=== PATIENT | male | born 1980 | race Caucasian/White ===

== ENCOUNTER → 2018-01-05 13:32 | Outpatient (CLI) | payer SELFPAY ==
--- NOTE | 2018-01-09 12:11 | ONE_ITS ---
DATE OF SERVICE: January 05, 2018. ASSESSMENT: Thoracic strain. PLAN: Initiate some Physical Therapy. I doubt that he will need ongoing Physical Therapy for any length of time but I would like to address this to prevent it from worsening again. He will begin Meloxicam 7.5 mg 1 PO b.i.d., chosen for lower risk GI side effects. He is instructed in slow, gentle stretching techniques and he is advised to try some heat applications. I will see him back in follow-up on the . Greater than 50% of this visit was spent in planning and coordination of care. He returns to work without limitations. 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 SUBJECTIVE: Mr. Cordova comes in for evaluation of upper back and neck discomfort which began yesterday at work. He says that about 8:30 AM, he had just completed his morning break and, as he was walking back to his work station , he stretched in a manner that is quite familiar to him. He demonstrates that he placed both hands behind his head and rotated both to the left and right. This is part of his daily stretching routine. But, as he did so while walking, he experienced sudden, intense upper thoracic pain on the left. He describes it as sharp, crippling, states it felt like a lightning bolt which radiated all the way up to the left occipital region. States it dropped me to my knees . Specifically, he says he fell to his left knee and then against a parked car. He was able to get up and remained at work. He says he rested for an additional 40 minutes in a seated position but eventually went home due to ongoing discomfort. Once home, he took a 4-hour nap preceded by 400 mg of Ibuprofen as well as 400 mg of Naproxen. When he awoke, he felt extremely stiff in the left upper thoracic region but states he had no headache, no radiation of the pain, no shoulder pain or other musculoskeletal discomfort. He did not apply any heat or ice. Today he says he did sleep well again last night. He awoke with more of an intense stiffness in the same area but not as intense as it had been yesterday. He tells me that rotating his head to the left causes a crampy sensation in the left side of his neck but the intense pain is now gone. REVIEW OF SYSTEMS: Feels generally well without fevers, chills, numbness, tingling, paresthesias of upper extremities. No headache, no visual changes, dizziness, vertigo. No abdominal pain, nausea, vomiting or gastrointestinal complaints. PAST MEDICAL HISTORY: Chronic low back pain which involves disc pathology. It is managed by injections a few times a year. The last one took place 3 months ago. He has been comfortable since. Other past medical history includes cervical and thoracic strain 2 years ago which he says was not like the current incident. It was much more intense. No longer having gastroesophageal reflux disease symptoms. Takes no routine medications except for occasional Tums. No known allergies. SOCIAL HISTORY: He is single, living with significant other and their young family. HABITS: Smokes 1 ppd of cigarettes. Rarely consumes alcohol and he exercises regularly. OBJECTIVE: He is alert, pleasant, cooperative and in no acute distress. Blood pressure 110/78. Pulse 82 and regular. Temperature is 97.5. His height and weight is 6' even and he weighs 200.5 lbs which is a weight gain of nearly 20 lbs since his last visit here. Head - normal. Neck - supple. Chest - heart regular rate and rhythm. Lungs - clear. Musculoskeletal - mild tenderness to palpation over the distal cervical vertebrae. None over the thoracic vertebrae. There is an area of tenderness lateral to T3-4 that is mildly tender with some spasm noted. There is no tenderness throughout the para spinous muscles of the lower thoracic and no tenderness to direct palpation of the para spinous muscles in the cervical spine. None in the occipital region. He has full flexion which does cause some pulling in that same thoracic area on the left. Full extension with ease. No discomfort at all. Rotation to 45 degrees on the left causes a crampy sensation in the left side of the neck and posterior neck and he rotates with ease to the right without discomfort. DTR's of upper extremities 1+ bilaterally. Sensory of upper extremities is intact.
== END ==
PROVIDERS: PCP Family Medicine; Visit Provider Nurse Practitioner Family
DX: M54.6 Pain in thoracic spine (principal); M54.2 Cervicalgia; X50.0XXA Overexertion from strenuous movement or load, initial encounter; Y99.0 Civilian activity done for income or pay
CPT/HCPCS: 99214

== ENCOUNTER 2018-01-11 09:00 | Outpatient (RCR) | payer SELFPAY ==
--- NOTE | 2018-01-10 10:30 | IE_ITS ---
Date: January 10, 2018 Referring: VINOD Sherman M.D. Diagnosis: Thoracic strain P.T. Diagnosis: Cervicothoracic myofascial pain. SUBJECTIVE: History of Present Illness: Alli complaints of continuous discomfort throughout the posterolateral of the cervical spine on the L into the supraspinatus fossa and the medial scapular border. Occasionally associated with paresthesias throughout the L hand, especially when extending his cervical spine. His last complaint is an intermittent aching sensation throughout the lateral proximal L humerus. Symptoms are generally worse with end range cervical movements. Does not generally interfere with sleeping pattern, although will occasionally waken him with rolling. A 38 year old male who developed an acute onset of cervical, thoracic discomfort when stretching last Tuesday at work. He had his hands behind his head and was arching backwards when his pain occurred. He took the rest of the day off and . He returned to work on Tuesday resuming his normal activities. He notes he is a 100% better, but still symptomatic. Pain Rating: Varies from a 4 to 7/10 Pain Location: Throughout the posterolateral cervical spine, into interscapular region. Prior Level of Function: Independent with all ADLs Current Level of Function: He has some discomfort with heavier lifting. Social: with 3 children, works at [employer], sometimes up to 60 hours per week. Comorbidities: None. Falls in the last year: __X__ No ____Yes - How many? ____ - (if over 2, balance SM needs to be completed) Reported hospitalizations in the last year - __X__ No ____ Yes - Dates of admission/reason: Medications: Was taken Ibuprofen and Tylenol, but discontinued this over the past couple days. Quality of Life: __X__ Excellent ____ Good ____ Fair ____ Poor Standardized Measures: MOLBPDQ: __8%__ OBJECTIVE: Posture: Mesomorphic. Shoulders and pelvis are level. (-) Lateral shift. Observation: (behavior, atrophy, skin color, etc.) No abnormal pain behavior noted, pleasant, cooperative. Palpation: Has some increased tone and tenderness throughout the thoracic paraspinals from T12-1 as well as L rhomboids, infra/supraspinatus fossa and levator scap. ROM: His active cervical spine movements in the standing position, rotation to the R is 80 degrees, L 70 degrees. Sidebending is 45 degrees bilaterally. He has end range discomfort with sidebending to the R, rotation to the L. Extension is limited to approximately 30 degrees, reproduction of his paresthesias. AA in supine position I can eventually get close to full range, although there is resistance in the early stages, except for extension at +45 degrees. His shoulder movements are full and painless with movement, other than the last 30 degrees of flexion/abduction in standing position. Passively is full and painfree. His R thumb is at the T11 level, L thumb is 3-4 above. He has a (+) Hawkin's Akshat impingement maneuver on the R. Thoracic rotation is non-painful Joint Accessory Motion: He has hypomobility with gliding maneuvers at the cervical spine. This improves once I reduce his muscle tone. Strength: Neuro: Has full motor control throughout 10/01, though he does complain of some suprascapular discomfort when loading shoulder abduction. Sensation is intact to light touch, UE reflexes symmetrical. Special Tests: (-) Spurling's test, some mild relief with manual traction. Treatment: Consisted of the evaluation along with patient education, mobilization of the cervical and thoracic spine. IE: [id number] Manual therapy: ([id number]). Direct treatment time: 60 MINS Total treatment time: 60 MINS ASSESSMENT: Patient is a 38-year-old male, referred for PT services with the diagnosis of thoracic spine pain. Patient presents with clinical signs and symptoms consistent with this diagnosis, including the cervical region which appears to be more myofascial in nature, as demonstrated by the following impairment level findings: Limited ROM especially in rotation to L and sidebending to the R when placing stress on the trapezius. Impairments are contributing to the following functional limitations: Limited cervical ROM and L UE discomfort, paresthesias resulting in difficulty carrying out his normal activities, especially heavy lifting, etc. . . Patient is assessed as: __X__ Low 58944 ____ Moderate [id number] ____ High 34047 complexity, based on the following: History: (list): Recent onset of cervicothoracic pain, which appears myofascial in nature. See comorbidities and social history. Examination: (list): X See above for functional limitations and impairments. Presentation: Stable . X Evolving Unstable Decision-Making: Low complexity X Moderate complexity High complexity % Disability based on MOLBPDQ of 8% __X__ Patient requires skilled PT intervention to remediate the above functional limitations to return to: __X__ Premorbid level of function __X__ Return to full functional mobility __X__ Return to work demands Prognosis: __X__ Excellent __X__ Good ____ Fair ____ Poor STG: __4__ weeks. 1: Decrease hypotonicity throughout the above mentioned trigger points to reduce pain and improve activity tolerance. LTG: __8__ weeks. 1: Return to premorbid level of function. 2:_ Return to full, pain-free, functional mobility. 3: Independent with self-maintenance program. PLAN: Session today consisted of the evaluation along with manual mobilization of the cervical spine with MET's, along with Jorden strain, counterstrain techniques, and myofascial stretching to the cervical, thoracic musculature. Instructed in a home program consisting of gentle stretching of the cervical spine with Mulligan rotational stretches as well as sidebending. This should be done within limits of pain. Heat for symptomatic relief. He will have a follow up appt tomorrow for more additional soft tissue mobilization. Thank you for this referral. Please do not hesitate to contact me with any questions or concerns regarding this patient's plan of care. cc: VINOD Sherman
--- NOTE | 2018-01-11 09:51 | PTTR_ITS ---
DATE: 01/11/18 SUBJECTIVE: Alli reporting being sore after his evaluation yesterday. He notes most of his discomfort through the left lateral neck and into his shoulder blades bilaterally. He does feel that he is moving his neck a little better than he was a couple of days ago. OBJECTIVE: Manual therapy: ([id number]). Mobilize cervical spine in supine position. Unload c-spine via light distraction, PROM into side bend and rotation bilaterally. He has full side bend and rotation to the right and limited side bend and rotation to the left with ipsilateral discomfort. Perform side glides and muscle energy techniques into side bend and rotation to the left with improvements in mobility although continued discomfort on the left. Perform upper cervical retraction stretching. STM applied to the left upper traps, scalenes and upper cervical paraspinals with trigger point release at the upper cervical paraspinal musculature. In prone position perform DTM through bilateral cervical and thoracic paraspinals, rhomboids and upper traps. Clear trigger point to the left upper trap and right rhomboid. Ends with MHP x 10 minutes in prone position to upper back and neck. Direct treatment time: 30 minutes Total treatment time: 30 minutes Isidra Donovan PTA
== END 2018-01-27 23:59 | disposition home or self-care (01) ==
LOC: PT 09:00
PROVIDERS: PCP Family Medicine; Referring Provider Nurse Practitioner Family; Visit Provider Nurse Practitioner Family
DX: M54.2 Cervicalgia (principal); M54.6 Pain in thoracic spine; M79.1 Myalgia
CPT/HCPCS: 97140; 97161

== ENCOUNTER → 2018-01-17 09:17 | Outpatient (CLI) | payer SELFPAY ==
--- NOTE | 2018-01-17 20:56 | ONE_ITS ---
DATE OF SERVICE: January 17, 2018 ASSESSMENT: Neck pain resolved, some residual pain due to thoracic strain. PLAN: I will contact Workers Comp. I would advocate for him having a few limited visits with PT to finish resolving this problem. It would likely respond to trigger point release. He is attempting to perform this at home, but having difficulty. No restrictions at work. He will be scheduled here for follow-up once we know the outcome of my request for further PT. Greater than 50% of this visit was spent in planning and coordination of care. SUBJECTIVE: Mr. Cordova returns for follow-up on upper back and neck discomfort. He tells me his neck is much better but he still feels some crampy sensation between his shoulder blades. He says he had one PT visit which was very helpful , but thereafter his PT has been denied by Workers Comp. He has been relatively comfortable for the specified intrascapular pain as above. He used the meloxicam for a few days and then stopped. He has also been performed stretches and exercises which were taught to him by Physical Therapy. He is working at full capacity, no difficulty with full job, no restrictions. REVIEW OF SYSTEMS: Feels generally well without radiation of pain. No neck pain, headache, numbness, tingling, or paresthesias of upper extremities. No abdominal pain, nausea, vomiting, or GI complaints. No chest pain, cough, wheeze, or dyspnea. PAST MEDICAL HISTORY: 1. Chronic low back pain which involves disc pathology, managed by injections which occur a few times yearly. 2. Thoracic strain two years ago which was not like the present episode; it was much more intense. CURRENT MEDICATIONS: He takes no routine medications except for occasional Tums. ALLERGIES: He has no known allergies. SOCIAL: Single, living with his significant other and their young family. HABITS: Smokes a pack of cigarettes daily. Rarely consumes alcohol Does exercise regularly. OBJECTIVE: Again, he is alert, pleasant, cooperative, and in no acute distress. Musculoskeletal exam: No tenderness to direct palpation over the cervical vertebrae, none over the thoracic vertebrae. The only residual tenderness to palpation is in the paraspinous muscles of the thoracic region. Areas are bilateral to T3-T4 where some persistent spasm is noted. He has full range of motion of head and neck. Some discomfort in that thoracic region with full extension. No pain with rotation or lateral bend. Upper extremity sensory is intact. DTRs upper extremities 1+ bilaterally.
== END ==
PROVIDERS: PCP Family Medicine; Visit Provider Nurse Practitioner Family
DX: M54.6 Pain in thoracic spine (principal); M54.2 Cervicalgia; X50.0XXD Overexertion from strenuous movement or load, subsequent encounter; Y99.0 Civilian activity done for income or pay
CPT/HCPCS: 99214

== ENCOUNTER 2020-09-06 14:07 | Emergency (ER) | payer OTHER, SELFPAY ==
[2020-09-06 14:13] VITALS: BP 137/88; PULSE 90; RESP 18; TEMP 36.6; O2SAT 94
[2020-09-06] MEDS: Tetracaine 0.5% 4 ML BTL (14:23)
[2020-09-06] MEDS: Erythromycin Ophth Oint 3.5 GM TUBE (14:23)
[2020-09-06] MEDS: Fluorescein STRIPS 100/BOX 1 MG (14:23)
--- NOTE | 2020-09-06 14:31 | W.ED.GENAD ---
Discharge Plan Disposition Patient Disposition: HOME Condition: Good Discharge Details Clinical Impression: Abrasion, corneal Primary Care Provider: Unknown,Unknown ED Provider: Hudson Doyle Discharge Instructions Instructions: Corneal Abrasion (ED) Additional Instructions: At this time you do have a mild corneal abrasion. Please use the erythromycin ointment as I showed you. A thin strip every 8 hours as needed. The abrasion should heal on its own quickly. If you still have symptoms after 48 hours please follow-up with Dr. Nunes for reassessment. If you notice any worsening of your symptoms, or any new symptoms such as vomiting, diarrhea, fever, chills, shortness of breath, chest pain, numbness, weakness, or fainting , please return immediately to the emergency department for reevaluation. Please follow up with your primary care provider as soon as possible for reassessment and reevaluation. As always, it was a pleasure participating in your medical care today. Referrals: [facility] [Outside] Medical Decision Making 40-year-old male no significant past medical history presents today for left eye irritation. Patient was working at his work with a multiple chemicals and other irritants, and during the workday he noticed sudden irritation in his left eye. He denies recalling any irritant squirting into his eye, or getting into his eye. He immediately went and wash the eye vigorously for a few minutes at his site. He then came to the ER a few hours later for further evaluation after he had continual foreign body sensation in his left medial eye. He denies any other vision changes. No headache. No numbness or tingling. No other complaints at this time. No history of trauma. Exam demonstrates a small evidence/area of uptake in the medial aspect of the left eye. Visual acuity good. It appears to be over the iris, but not the pupil. No retained foreign body. Eversion of the lids is unremarkable. Suspect mild chemical irritation or excoriation from previous foreign body which is now been washed out. pH was performed of both eyes, they are identical at around 7.0. No other abnormalities. Exam also shows no evidence of traumatic iritis. Patient does not have any exposure to metal or rust. We will give her the erythromycin ointment. Patient's pain completely relieved after tetracaine. Patient will be discharged. I have extensively reviewed the treatment plan and discharge instructions with the patient. I have addressed all patient concerns at this time. The patient was made aware of what symptoms to monitor for that would warrant a return to the emergency department. Discussed the plan with the patient, they demonstrate verbal understanding and agreement with our assessment and plan at this time. The documentation in this chart was dictated using [employer] dictation software. Please excuse any dictation errors. HPI General Date/Time Provider Initiated Documentation: 09/06/20 14:12. HPI Narrative: 40-year-old male no significant past medical history presents today for left eye irritation. Patient was working at his work with a multiple chemicals and other irritants, and during the workday he noticed sudden irritation in his left eye. He denies recalling any irritant squirting into his eye, or getting into his eye. He immediately went and wash the eye vigorously for a few minutes at his site. He then came to the ER a few hours later for further evaluation after he had continual foreign body sensation in his left medial eye. He denies any other vision changes. No headache. No numbness or tingling. No other complaints at this time. No history of trauma. Related Data Allergies Allergy/AdvReac Type Severity Reaction Status Date / Time No Known Allergies Allergy Unverified 09/06/20 14:16 General Stated Complaint: EyeProblem BEENA: 4 Review of Systems All systems reviewed & are unremarkable except as noted in HPI and below PFSH Medical History GERD (gastroesophageal reflux disease) Surgical History Steroid Injection [facility]; right sided L5-S1 translaminar epidural steroid injection Family History Mother Hyperlipidemia Father Hyperlipidemia Sister Asthma Grandfather Personal history of malignant neoplasm LUNG Heart disease Hyperlipidemia Grandmother Diabetes Hyperlipidemia Social History Smoking risk assessment performed?: No Do you feel safe at home: Yes Do you feel safe in your relationship?: Yes Exam Narrative Exam Narrative: 1.Const: Well-nourished, Well-developed, appearing stated age 2.Eyes: PERRL, no conjunctival injection, and symmetrical lids. Left eye: EOMI, PERRL, Peripheral vision intact. No nystagmus. No clinical signs of septal/orbital cellulitis, no redness around the eye, no proptosis. No hyphema, no signs of trauma around the eye, no periorbital emphysema. No sluggishness of the pupil. No ophthalmoplegia. No afferent pupillary defect. Fluorescein exam is positive for corneal abrasion at the medial aspect for the left eye just over the medial aspect of the iris, negative Delvis sign. Eversion of the upper and lower lid shows no evidence of retained foreign body. Visual acuity is unremarkable. 3.ENT: Atraumatic external nose and ears. Moist MM. Neck: Symmetric, trachea midline, No thyromegaly. 4.CVS: +S1/S2, No murmurs or gallops. Peripheral pulses 2+ and equal in all extremities. Brisk capillary refill in all extremities. 5.RESP: Unlabored respiratory effort. Clear to auscultation bilaterally. No wheezes rales or rhonchi 6.GI: Soft, Nontender/Nondistended, No hepatosplenomegaly. No guarding or rebound. 7.MSK: Normocephalic/Atraumatic, Extremities w/o deformity or ttp No cyanosis or clubbing, Normal movement of all extremities 8.Skin: Warm, Dry. No rashes or lesions. 9.Neuro: sandstone splitter II-XII grossly intact. Sensation grossly intact, no focal neurologic deficits. 10.Psych: (AAO) x3. Appropriate mood and affect Course Vital Signs Vital signs: Vital Signs Temperature 36.6 C 09/06/20 14:13 Pulse 90 09/06/20 14:13 Respiratory Rate 18 09/06/20 14:13 Blood Pressure 137/88 09/06/20 14:13 Pulse Oximetry 94 09/06/20 14:13 Temperature 36.6 C 09/06/20 14:13 Temperature Source Temporal Artery Scan 09/06/20 14:13 Pulse 90 09/06/20 14:13 Respiratory Rate 18 09/06/20 14:13 Respiratory Effort Non-Labored 09/06/20 14:17 Blood Pressure 137/88 09/06/20 14:13 Blood Pressure Position Sitting 09/06/20 14:13 Pulse Oximetry 94 09/06/20 14:13 Oxygen Delivery Method Room Air 09/06/20 14:13 Oxygen Flow Rate 0 09/06/20 14:13 Pain Level 2 09/06/20 14:13
== END 2020-09-06 14:36 | disposition home or self-care (01) ==
PROVIDERS: Emergency Provider Student in an Organized Health Care Education/Training Program
DX: S05.02XA Injury of conjunctiva and corneal abrasion without foreign body, left eye, initial encounter (principal); X58.XXXA Exposure to other specified factors, initial encounter; Y99.0 Civilian activity done for income or pay
CPT/HCPCS: 99283

== ENCOUNTER 2021-07-04 17:03 | Emergency (ER) | payer OTHER, SELFPAY ==
--- NOTE | 2021-07-04 17:15 | DI.RAD_ITS ---
Exam(s) XR SHOULDER RT COMPLETE 2+V EXAM: XR SHOULDER RT COMPLETE 2+V CLINICAL HISTORY: Fall skiing, pain. TECHNIQUE: 2D digital imaging was performed. COMPARISON: No exams were available for comparison FINDINGS: There is no evidence of acute fracture or dislocation. No abnormal soft tissue calcifications. AC j oint also appears unremarkable. Bone density normal. No osseous lesions. IMPRESSION: No fractures identified DATA REPOSITORY: RADIATION DOSE DELIVERED:
[2021-07-04 17:21] VITALS: BP 132/98; PULSE 68; RESP 16; TEMP 36.6; O2SAT 98
--- NOTE | 2021-07-04 17:30 | W.ED.GENAD ---
Discharge Plan Disposition Patient Disposition: HOME Condition: Improving Discharge Details Chief Complaint: Orthopedic Clinical Impression: Derangement of right acromioclavicular joint Primary Care Provider: Unknown,Unknown ED Provider: Dane Pimentel Home Meds and New Rx's Prescriptions: No Action No Known Home Meds RF: 0 Discharge Instructions Instructions: Acromioclavicular Separation (ED) Additional Instructions: Continue ice 20 to 30 minutes at a time to reduce pain and swelling. You have increased soreness tomorrow morning. Wear sling for comfort approximately 1 week's time. You may then begin gentle range of motion exercises as we discussed. May use Tylenol 650 to 975 mg every 4-6 hours. May also use Aleve as you have been. Do not use Aleve in addition to ibuprofen/Advil/Motrin. Stand Alone Forms: Work Release Medical Decision Making 41-year-old male presents from outpatient setting. He was [place] he slipped and drove his right shoulder into the ground. He states there was no loss of consciousness. He is not had any neck or back pain. No shortness of breath. He arrives to the ER with normal vital signs and exam that reveals right distal clavicular pain. Topical treatment with ice initiated, patient deferred oral analgesia, he was referred for x-ray. X-ray does not reveal acute injury. The patient has point tenderness over his right AC joint. I am suspicious of a grade 1 AC injury. Discussed this with him. We will place him in a sling for approximately 1 week. Off work for 1 week. He is stable and appropriate for discharge to home. HPI General Mode of arrival: ambulatory. Date/Time Provider Initiated Documentation: 07/04/21 17:05. Limitations to Documentation: no limitations. Information obtained by: patient. History of Present Illness 41 year old M presents to the emergency department with the chief complaint of Right shoulder pain after fall while skiing, described as moderate, Quality is described as dull and constant, and is localized to the right and upper extremity. Patient reports no radiation. Patient started experiencing this hour(s) and it has been constant. No relieving factors improve symptom(s), No exacerbating factors reported . Patient notes denies chest pain, shortness of breath, syncope and weakness. Patient did receive the following treatments prior to arrival, none Related Data Home Medications Medication Instructions Recorded Confirmed Unknown [No Known Home Meds] 07/04/21 07/04/21 Allergies Allergy/AdvReac Type Severity Reaction Status Date / Time No Known Allergies Allergy Unverified 07/04/21 17:29 General Stated Complaint: Orthopedic BEENA: 3 Review of Systems Narrative: No loss of consciousness. Denies chest/neck/back or abdomen pain. Otherwise healthy. 4 systems were reviewed [facility] All Active Problems (Updated 07/04/21 @ 18:49 by Dane Pimentel MD) Abrasion, corneal (Acute) Derangement of right acromioclavicular joint (Acute) Medical History GERD (gastroesophageal reflux disease) Surgical History Steroid Injection [facility]; right sided L5-S1 translaminar epidural steroid injection Family History Mother Hyperlipidemia Father Hyperlipidemia Sister Asthma Grandfather Personal history of malignant neoplasm LUNG Heart disease Hyperlipidemia Grandmother Diabetes Hyperlipidemia Social History Smoking/Tobacco Use Status: Current every day Tobacco Type: cigarettes Smoking risk assessment performed?: Yes Drug use: Daily Substance use type: marijuana Do you feel safe at home: Yes Do you feel safe in your relationship?: Yes Exam Narrative Exam Narrative: GEN: awake, alert, oriented 3. Pleasant, well groomed, interactive. HEAD: Normocephalic, atraumatic EYES: PERRL, EOMI NECK: Full ROM, nontender, no step-off or deformity CHEST/RESP: Tender right distal clavicle., clear to auscultation bilateral, no wheeze/rhonchi/rales CARDIOVASCULAR: RRR, no murmur, rub neeru. 2+ Rad pulse bilateral ABDOMEN: Soft, nontender, no mass. +Bowel sounds EXT: Right arm range of motion limited by pain. Right distal clavicle tender to palpation. Normal motor and sensory function of the right arm. Neuro: Grossly normal neurologic exam, conversant, interactive. Psych: Speech fluent, thoughts congruent, affect normal Course Vital Signs Vital signs: Vital Signs Temperature 36.6 C 07/04/21 17:21 Pulse 68 02/05/22 17:21 Respiratory Rate 16 07/04/21 17:21 Blood Pressure 132/98 H 07/04/21 17:21 Pulse Oximetry 98 07/04/21 17:21 Temperature 36.6 C 07/04/21 17:21 Temperature Source Temporal Artery Scan 07/04/21 17:21 Pulse 68 07/04/21 17:21 Respiratory Rate 16 07/04/21 17:21 Respiratory Effort Non-Labored 07/04/21 17:26 Blood Pressure 132/98 H 07/04/21 17:21 Blood Pressure Position Sitting 07/04/21 17:21 Pulse Oximetry 98 07/04/21 17:21 Oxygen Delivery Method Room Air 07/04/21 17:21 Oxygen Flow Rate 0 07/04/21 17:21 Pain Level 7 07/04/21 17:21 PAWSS Have you Been Recently Intoxicated or Drunk Within the Last 30 days?: No Have you Ever Experienced Previous Episodes of Alcohol Withdrawal?: No Have you ever Experienced Withdrawal Seizures?: No Have you ever Experienced Delirium Tremens(DT)s?: No Have you ever undergone Alcohol Rehabilitation Treatment (i.e, inpt ot outpatient treatment programs)?: No Have you ever Experienced Blackouts?: No Have you ever Combined Alcohol with other Downers within the last 90 days?: No Have you ever Combined Alcohol with any other Substance of Abuse during the last 90 days?: No Positive Blood Alcohol level on Presentation? [PCS.BAL]: No Evidence of Increased Autonomic Activity (i.e. HR>120, tremor, sweating, agitation, nausea)?: No Result: 0
--- NOTE | 2021-07-04 18:35 | DI.VRAD_ITS ---
PROCEDURE INFORMATION: Exam: XR Right Shoulder Exam date and time: 07/04/2021 17:23 Age: 41 years old Clinical indication: Injury or trauma; Fall and other: Skiing ax; Sprain or strain; Shoulder; Right TECHNIQUE: Imaging protocol: XR Right shoulder. Views: 2 or more views. COMPARISON: CR CHEST 2 VIEWS PA,LAT 08/19/2015 14:23 FINDINGS: Bones/joints: No acute fracture or subluxation. Soft tissues: Normal. IMPRESSION: No acute bony pathology. Dictated and Authenticated by: Keila Rodrigez MD. Ordering:VIDAL Vela MD
== END 2021-07-04 19:07 | disposition home or self-care (01) ==
PROVIDERS: Emergency Provider Emergency Medicine
DX: M24.811 Other specific joint derangements of right shoulder, not elsewhere classified (principal); V00.321A Fall from snow-skis, initial encounter
CPT/HCPCS: 99283; 73030